=== PATIENT | male | born 1985 | race Caucasian/White ===

== ENCOUNTER 2023-11-22 09:27 | Day surgery (SDC) | payer BC ==
[~2023-11-22] VITALS: Ht 185.4 cm; Wt 110.3 kg
[2023-11-22] VITALS (10 sets, daily range): BP systolic 114–138; BP diastolic 71–95
[2023-11-22] MEDS ORDERED: Lactated Ringer's 1,000 ML IV SCH (10:15)
[2023-11-22] MEDS ORDERED: CeFAZolin Sodium 2,000 MG in NS 50 ML IV SCH (10:15)
[2023-11-22] MEDS ORDERED: FentaNYL Citrate 50 MCG/ML 2 ML Injection ONE ×2 (10:38→12:47)
[2023-11-22] MEDS ORDERED: propofoL 20 ML IV ONE (10:38)
[2023-11-22] MEDS ORDERED: Ketorolac Tromethamine 30mg Vial ONE (10:40)
[2023-11-22] MEDS ORDERED: Ondansetron HCl 2 MG / ML 2ML Vial ONE (10:40)
[2023-11-22] MEDS ORDERED: FentaNYL Citrate 50 MCG/ML 2 ML Injection IV PRN ×6 (10:40→10:50)
[2023-11-22] MEDS ORDERED: Dexamethasone Sod Phos 10 MG/ML 1ML VIAL ONE (10:40)
[2023-11-22] MEDS ORDERED: HYDROmorphone HCl/Pf 1MG SYR IV PRN ×2 (10:45→10:50)
[2023-11-22] MEDS ORDERED: Metoclopramide HCl 5MG / ML 2ML Vial IV PRN ×2 (10:45)
[2023-11-22] MEDS ORDERED: Ondansetron HCl 2 MG / ML 2ML Vial IV PRN ×2 (10:45)
[2023-11-22] MEDS ORDERED: Midazolam HCl 1MG / ML 2ML Vial IV PRN (10:45)
[2023-11-22] MEDS ORDERED: Lidocaine HCl 1% 5 ML SYR INJ ONE (10:50)
[2023-11-22] MEDS ORDERED: Bupivacaine 0.5% HCl 5 MG/ML 30MLVIAL ONE (11:20)
--- NOTE | 2023-11-22 11:36 | NUR ---
Patient up to Ambulate independently. Gait steady. Surgical site prepped with 2% Chlorhexidine cloth wipe. History, Chart, Medications and Allergies reviewed before start of procedure.Lungs clear T/O to Auscultation. Patient confirms NPO status and agrees with scheduled surgery. Patient States Post-Procedure ride home has been arranged. Pre-Op teaching done. Pt verbalizes understanding.
[2023-11-22] MEDS ORDERED: Glycopyrrolate 0.2 MG/ML 5ML VIAL ONE (12:19)
[2023-11-22] MEDS ORDERED: HYDROcodone 5-APAP 325 TAB PO PRN (13:25)
--- NOTE | 2023-11-22 14:52 | NUR ---
Patient up to Ambulate independently. Gait steady. Discharge instructions reviewed with patient. Patient verbalizes understanding. Copy given to patient to take home, WELL . Patient States Post-Procedure ride home has been arranged. Discharged via wheelchair to private car for ride home. PT DENIES PAIN. REPORTS NAUSEA MUCH BETTER. PT DECLINES PAIN MEDICATION. DRESSING C/D/I.
== END 2023-11-22 14:52 | disposition home or self-care (01) ==
LOC: ORSCMMR 09:27 → ORD 10:45 → ORSCMMR 14:52
PROVIDERS: Surgery
PROC: 0JB70ZX Excision of Back Subcutaneous Tissue and Fascia, Open Approach, Diagnostic (ICD-10-PCS; principal; 2023-11-22 10:45)
DX: D17.1 Benign lipomatous neoplasm of skin and subcutaneous tissue of trunk (principal); E66.9 Obesity, unspecified; Z68.32 Body mass index [BMI] 32.0-32.9, adult
CPT/HCPCS: 88304; J0690; J1100; J1885; J2250; J2405; J2704; J3010; J7120